=== PATIENT | male | born 1955 | race Two or more races ===

== ENCOUNTER 2020-08-27 12:00 | Emergency (ER) | payer OTHER ==
[~2020-08-27] VITALS: Ht 175.3 cm; Wt 85.4 kg
[2020-08-27 15:06] LABS: PROTHROMBIN TIME 10.1 sec (9.6-11.0)
[2020-08-27] MEDS ORDERED: PHENYLEPHRINE 50 MG in DEXT 5% WATER 245 ML IV PRN ×2 (15:15→16:30)
[2020-08-27] MEDS ORDERED: IOHEXOL-350 100 ML BOTTLE ONE (15:20)
[2020-08-27 15:32] LABS: BG BASE EXCESS -15.1 mmol/L (-2.0-2.0); BG CARBOXYHEMOGLOBIN 0.2 % (0.5-1.5); BG DEOXYHEMOGLOBIN 7.3 % (0.0-5.0); BG FRACTION INSPIRED OXYGEN 21; BG HCO3 ACT 10.7 mmol/L (22.0-26.0); BG METHEMOGLOBIN 0.2 % (0.0-1.5); BG OXYGEN SATURATION 92.7 % (92.0-98.5); BG OXYHEMOGLOBIN 92.3 % (94.0-97.0); BG PCO2 26.2 mmHg (35.0-45.0); BG PH 7.228 (7.350-7.450); BG PO2 70.5 mmHg (75.0-100.0); BG SAMPLE SITE RIGHT RADIAL; BG TOTAL HEMOGLOBIN 15.2 g/dL (12.0-18.0); BG VENT MODE ROOM AIR
[2020-08-27 15:49] LABS: BASOPHILS % 0.5 % (0.0-2.0); EOSINOPHILS % 0.1 % (0.0-5.0); HEMATOCRIT. 52.2 % (42.0-52.0); HEMOGLOBIN. 15.8 g/dL (14.0-18.0); LYMPHOCYTES % 8.9 % (20.0-50.0); MEAN CORPUSCULAR HEMOGLOBIN 27.4 pg (28.0-32.0); MEAN CORPUSCULAR VOLUME 90.4 fL (80.0-94.0); MEAN PLATELET VOLUME 10.2 fl (7.4-10.4); MONOCYTES % 7.8 % (2.0-8.0); NEUTROPHILS % 82.7 % (40.0-76.0); PLATELET 219 x1000/uL (130-400); RED BLOOD CELL COUNT 5.77 mill/uL (4.7-6.1); RED CELL DISTRIBUTION WIDTH 17.7 % (11.6-14.6)
[2020-08-27] MEDS ORDERED: SODIUM CHLORIDE 0.9% 1,000 ML IV ONE ×2 (16:15→17:15)
[2020-08-27 16:16] LABS: CLARITY URINE CLEAR (CLEAR); COLOR URINE YELLOW (YELLOW); KETONES URINE 2+ (NEGATIVE); LEUKOCYTE ESTERASE URINE NEGATIVE (NEGATIVE); NITRITE URINE NEGATIVE (NEGATIVE); OCCULT BLOOD URINE 2+ (NEGATIVE); PROTEIN URINE TRACE (NEGATIVE); SPECIFIC GRAVITY URINE 1.038 (1.005-1.030); UROBILINOGEN URINE 0.2 E.U./dL (0.2-1.0)
[2020-08-27 16:20] VITALS: BP 154/90
[2020-08-27 16:38] LABS: *AMPHETAMINES SCREEN URINE NEGATIVE (NEGATIVE); *BARBITURATES SCREEN URINE NEGATIVE (NEGATIVE); *COCAINE SCREEN URINE NEGATIVE (NEGATIVE)
[2020-08-27 16:39] LABS: *BENZODIAZEPINES SCREEN URINE NEGATIVE (NEGATIVE); METHADONE URINE SCREEN NEGATIVE (NEGATIVE); OPIATES URINE SCREEN NEGATIVE (NEGATIVE)
[2020-08-27 16:41] LABS: PHENCYCLIDINE URINE SCREEN NEGATIVE (NEGATIVE)
[2020-08-27 16:42] LABS: CANNABINOID URINE SCREEN NEGATIVE (NEGATIVE)
[2020-08-27 16:50] LABS: CHLORIDE 103 mEq/L (98-107)
[2020-08-27 16:54] LABS: ETHANOL BLOOD < 10 mg/dL
[2020-08-27 16:56] LABS: BETA HYDROXYBUTYRATE 7.2 mMol/L (0.0-0.3)
[2020-08-27 16:57] LABS: LDL CHOLESTEROL 94 mg/dL (5-100)
[2020-08-27 16:58] LABS: CREATINE KINASE 294 IU/L (39-308)
[2020-08-27] MEDS ORDERED: SODIUM CHLORIDE 0.9% 1,000 ML IV STA (17:14)
[2020-08-27] MEDS ORDERED: INSULIN REGULAR (DRIP) 100 UNITS in SODIUM CHLORIDE 0.9% 99 ML IV ONE (17:30)
== END 2020-08-27 18:47 | disposition short-term general hospital (02) ==
LOC: ER 12:04 → CANBEDREQ 08-28 16:09
DX: I65.22 Occlusion and stenosis of left carotid artery (principal); E87.1 Hypo-osmolality and hyponatremia; E11.10 Type 2 diabetes mellitus with ketoacidosis without coma; U07.1 COVID-19
CPT/HCPCS: 36415; 36600; 70450; 70496; 71045; 80053; 80305; 80320; 81003; 82010; 82375; 82550; 82805; 82962; 83605; 83721; 84484; 85025; 85610; 87426; 93005; 96361; 96374; 99285; J1815; J7050; Q9967; G0480